=== PATIENT | male | born 1985 | race Caucasian/White ===

== ENCOUNTER 2017-12-20 09:16 | Emergency (ER) | payer OTHER, SELFPAY ==
[2017-12-20 09:17] VITALS: BP 125/76; PULSE 126; RESP 15; TEMP 37.4; O2SAT 99; BMI 39.4
[2017-12-20] MEDS: Dicyclomine 20 MG/2 ML Vial IM (09:37)
[2017-12-20] MEDS: Ondansetron ODT 4 MG Tablet PO (09:37)
--- NOTE | 2017-12-20 09:55 | ED.DCSUM_ITS ---
- ER Visit Summary Date of Service: 12/20/17 Chief Complaint: Abdominal pain associated with nausea, vomiting diarrhea History of Present Illness: The patient is a 31 M who was awakened from sleep at 0200. He reported episode of nausea and vomiting. He states he did not have anything to eat or drink after this. Went to bed. He then woke up essentially every hour with watery diarrhea. He denies any blood or mucus. There is no history of inflammatory bowel disorder and there is no family history of inflammatory bowel disorder. Others ate the same food yesterday and are not ill to his knowledge. He has not taken any antibiotics in the past month. No one in the household is ill. The food he ate did not have an unusual taste. He denied hematemesis. He denies thirst, dry mouth or orthostatic symptoms. He denies fever or chills. He does not have a primary care physician nor is he on any medication. Physical Examination: Vital signs remarkable for heart rate 126. He does not appear ill or in distress. Head is atraumatic normocephalic. Pupils are equal round reactive. Extraocular muscles are intact. TMs are pearly white with landmarks noted. Nares patent with no drainage. Posterior pharynx without erythema or exudate. Uvula is midline. There is no dysphonia or dysphasia. Trachea is midline. There is no stridor with auscultation of the neck. Heart is regular without murmur, gallop or rub. S1 and S2 are normal. Lungs are clear to auscultation with good movement of air bilaterally. Abdomen is soft nontender. There is slight tympany to percussion. There are no dermatologic lesions noted. Neuro exam is nonfocal. Test Results: Patient passed p.o. challenge. He had one loose stool. Emergency Department Course and Treatment: Since patient clinically does not appear dehydrated he was treated with Zofran oral dissolvable tablet and 20 mg of Bentyl for his colicky rumbling migratory pain that he experiences before a loose bowel movement. Plan is to p.o. challenge 3060 minutes after administration of Zofran. If he passes p.o. challenge based on the WHO recommendation oral hydration is appropriate. Treatment Plan: Patient received 4 mg of Imodium prior to discharge and prescription for Bentyl. Disposition: Discharged home Impression: 1. Abdominal pain with nausea, vomiting diarrhea 2. Sinus tachycardia documented on monitor This note was generated with [employer] dictation software. It may contain incorrect words, spelling, and punctuation that were not noted in review of the chart prior to signing ED Disposition - Plan for ED Patient: Disposition: Home or Assisted Living Chief Complaint: Abd Pain Instructions: ED Vomiting Diarrhea Nonspecific Ad Prescriptions: Dicyclomine HCl [Bentyl] 20 mg PO ACHS #10 cap Referrals: Care Physician,No Primary [Primary Care Provider] - Chris Barreto MD [STAFF PHYSICIAN] - 3-5 Days if not improving Additional Instructions: Take Imodium as instructed on box/bile or diarrhea. You are referred to Dr. Barreto for follow-up if needed since she does not have a primary care physician.
[2017-12-20] MEDS: Loperamide 2 MG Capsule 4 MG PO (10:40)
== END 2017-12-20 10:44 | disposition home or self-care (01) ==
PROVIDERS: Emergency Provider Emergency Medicine
DX: R10.9 Unspecified abdominal pain (principal); R11.2 Nausea with vomiting, unspecified; R19.7 Diarrhea, unspecified; R00.0 Tachycardia, unspecified; M54.9 Dorsalgia, unspecified
CPT/HCPCS: 99283